=== PATIENT | male | born 1955 | race Caucasian/White ===

== ENCOUNTER 2020-07-03 09:48 | Outpatient (NON) | payer MEDICARE, OTHER, SELFPAY ==
[2020-07-03 17:33] LABS: Influenza Control Positive
== END 2020-07-03 09:49 ==
PROVIDERS: PCP Internal Medicine; Visit Provider Nurse Practitioner
DX: R68.89 Other general symptoms and signs (principal)
CPT/HCPCS: 87804

== ENCOUNTER 2020-11-04 13:57 | Outpatient (CLI) | payer MEDICARE, OTHER, SELFPAY ==
--- NOTE | ~2020-11-04 | US_ITS ---
EXAMINATION: US venous doppler LE DATE: 11/04/2020 14:33 INDICATION: Left lower limb swelling TECHNIQUE: Grayscale ultrasound images without and with compression and Doppler ultrasound images of the left lower extremity veins were obtained. COMPARISON: None. FINDINGS: Noncompressible occlusive appearing deep venous thrombosis in the distal left femoral vein, popliteal vein, proximal left posterior tibial veins and peroneal veins. The visualized portions of left commo n femoral vein, profunda (deep) femoral vein, possible to mid femoral vein, gastrocnemius vein and le sser saphenous vein and greater saphenous vein outflow are patent. IMPRESSION: 1. Above and [id number] left deep venous thrombosis extending from the distal left femoral vein through the popliteal vein into the peroneal and posterior tibial veins. Reviewed, dictated and finalized at location A. IMPRESSION: 1. Above and [id number] left deep venous thrombosis extending from the dis [place] left femoral vein through the popliteal vein into the peroneal and posterio r tibial veins.
--- NOTE | ~2020-11-04 | CT_ITS ---
EXAMINATION: CTA chest PE protocol DATE: 11/04/2020 16:28 INDICATION: Left lower extremity deep venous thrombosis extending as high as the distal left femoral vein TECHNIQUE: Computed tomography angiography (CTA) of the chest was performed with 100 mL Omnipaque-350 intravenous contrast timed to evaluate the pulmonary arteries. Coronal maximum intensity projection 3D-reconstructions were created by the technologist. Automated exposure control and iterative reconst ruction technique were employed. Exam dose: 807.11 mGy-cm total exam DLP. COMPARISON: 08/24/2018 2 view chest 11/04/2020 venous duplex examination of left leg FINDINGS: There is diagnostic contrast enhancement of the pulmonary arteries and extensive bilateral pulmonary embolism including bilateral saddle emboli, extensive clot involving particularly the lower lobes. No thoracic aortic aneurysm or dissection. No hilar or mediastinal mass lesion or lymphadenopathy. Cardiomegaly. No pericardial or pleural effusion. No pulmonary consolidation. No pulmonary mass lesion is evident. Normal morphology of the adrenal glands. 2 cm upper pole left renal cyst. Occasional probable hepatic cysts. No suspicious osteolytic or osteoblastic lesions are noted. IMPRESSION: Extensive bilateral pulmonary embolism including bilateral saddle emboli Reviewed, dictated and finalized at Location A. Reviewed, dictated and finalized at location B.
[2020-11-04 16:20] LABS: Estimated Glomerular Filt Rate > 60
== END 2020-11-04 13:58 | disposition home or self-care (01) ==
PROVIDERS: PCP Internal Medicine; Visit Provider Nurse Practitioner
DX: M79.89 Other specified soft tissue disorders (principal); R06.02 Shortness of breath; I82.402 Acute embolism and thrombosis of unspecified deep veins of left lower extremity
CPT/HCPCS: 71275; 93971; Q9967

== ENCOUNTER 2020-11-04 16:58 | Observation (INO) | payer MEDICARE, OTHER, SELFPAY ==
[2020-11-04] VITALS (8 sets, daily range): BP systolic 153–175; BP diastolic 86–96; PULSE 68–91; RESP 17–20; TEMP 36.2–36.3; O2SAT 95–100
--- NOTE | 2020-11-04 17:09 | ECG_ITS ---
Measurements Intervals [place] Rate: 77 P: 33 CA: 152 QRS: 12 QRSD: 94 T: 68 QT: 373 QTc: 424 Interpretive Statements SINUS RHYTHM NONSPECIFIC T-WAVE ABNORMALITY- HIGH LATERAL LEADS BASELINE WANDER- III, AVF, V4 BORDERLINE ECG Electronically Signed On 11-04-2020 17:59:22 CDT by Jose A Brian D.O.
[2020-11-04 17:21] LABS: Basophils Percent Auto 0.2 % (0.2-1.2); Eosinophils Absolute Auto 0.2 K/mm3 (0-0.3); Eosinophils Percent Auto 2.7 % (0-4.4); Hematocrit 45.4 % (42.0-52.0); Hemoglobin 15.1 g/dL (14.0-18.0); Immature Granulocyte Absolute 0.02 K/mm3 (0.00-0.031); Immature Granulocyte Percent A 0.3 % (0-0.5); Lymphocytes Absolute Auto 1.59 K/mm3 (0.9-3.2); Lymphocytes Percent Auto 24.1 % (18.3-44.2); Mean Corpuscular HGB Conc 33.3 g/dl (32-36); Mean Corpuscular Hemoglobin 29.8 pg (26-34); Mean Corpuscular Volume 89.5 fl (80-100); Monocytes Absolute Auto 0.5 K/mm3 (0.1-0.6); Monocytes Percent Auto 7.6 % (2.6-8.5); Neutrophils Absolute Auto 4.3 K/mm3 (1.3-6.7); Neutrophils Percent Auto 65.1 % (45.5-73.1); Platelet Count Result 190 k/mm3 (150-375); Red Blood Count 5.07 M/mm3 (4.6-6.20); Red Cell Distribution Width 13.4 % (11.5-14.5); White Blood Count 6.6 K/mm3 (4.5-10.0)
[2020-11-04 17:31] LABS: INR 0.9; Prothrombin Time 12.9 Seconds (11.1-14.7)
[2020-11-04 17:32] LABS: Partial Thromboplastin Time 27.5 SECONDS (22.3-36.8)
--- NOTE | 2020-11-04 17:36 | ED.SOB ---
HPI - SOB/Dyspnea General Chief Complaint: Shortness of Breath/Dyspnea Stated Complaint: bilateral PE and DVTs Time Seen by Provider: 11/04/20 17:07 Source: patient, family, RN notes reviewed and old records reviewed History of Present Illness HPI Narrative: 64-year-old male presents to emergency department, recently diagnosed for a DVT and PE. Patient states he has had left leg swelling and shortness of breath for the past week. No history of clots in the past. He had a ultrasound done today ordered by primary care physician which showed a DVT, and had a CT scan also today which showed a pulmonary embolism. Patient denies chest pain. No abdominal pain. No nausea or vomiting. Patient was started on Xarelto by his primary care physician. Related Data Home Medications Medication Instructions Recorded Confirmed losartan 100 mg PO DAILY 11/04/20 11/04/20 Allergies Allergy/AdvReac Type Severity Reaction Status Date / Time No Known Allergies Allergy Verified 11/04/20 13:10 Review of Systems Review of Systems: Narrative: CONSTITUTIONAL: Denies fever, chills, or sweats. EYES: Denies visual changes, redness, or discharge. ENT: Denies rhinorrhea, congestion, sore throat, or otalgia. CARDIOVASCULAR: Denies chest pain, palpitations, or edema. RESPIRATORY: Denies cough or dyspnea. GASTROINTESTINAL: Denies abdominal pain, nausea, vomiting, or diarrhea. GENITOURINARY: Denies dysuria or hematuria. SKIN: Denies rash or itching. MUSCULOSKELETAL: Denies back pain, joint pain, or myalgia. NEUROLOGIC: Denies headache, numbness, dizziness, or weakness. PSYCHIATRIC: Denies anxiety or depression. All systems reviewed & are unremarkable except as noted in HPI and below (ROS) [facility], [facility] Past Medical History Medical History (Updated 11/04/20 @ 20:05 by Madelaine Billings DO) GERD (gastroesophageal reflux disease) Hypertension Obstructive sleep apnea Polysomnogram 2016 with recommended CPAP settings of 7 cm H2O Surgical History Surgical History (Updated 11/04/20 @ 19:57 by Madelaine Billings DO) History of lumbar laminectomy History of ventral hernia repair Family History Family History (Updated 11/04/20 @ 19:59 by Madelaine Billings DO) Sibling Hypertension Mother Dementia Coronary artery disease Other Cerebrovascular accident Diabetes mellitus Social History Social History (Updated 11/04/20 @ 20:00 by LEONIE Enriquez Social History: Primary care physician: Dr. Devante Brown Code status: Full code Surrogate decision maker: Smoking status: Never smoker Alcohol intake: former Substance use: never Substance use type: does not use Gender identity (if verbalized by the patient): Male Spiritual care concerns: No Exam Narrative: Exam Narrative: GENERAL: Well-appearing, well-nourished, and in no acute distress. HEAD: Normocephalic, atraumatic. EYES: PERRLA and EOMI. ENT: Nares clear, no rhinorrhea or epistaxis. Mucous membranes moist. NECK: Supple. CHEST: Clear to auscultation. No respiratory distress. HEART: Regular rate and rhythm. No murmur heard. Normal peripheral pulses. ABDOMEN: Soft, nontender, nondistended, normal active bowel sounds. EXTREMITIES: Normal range of motion. 2+ pitting edema left lower extremity. SKIN: Warm, dry, no rash. NEURO: No focal deficits. Alert and oriented x3. PSYCH: Normal mood and affect. Course Course Emergency Course: 17:43 -discussed case with primary care physician for likely observation due to extensive pulmonary embolism and DVT. Vital Signs Vital signs: Vital Signs Temperature 36.2 C L 11/04/20 17:02 Pulse Rate 81 11/04/20 17:02 Respiratory Rate 19 11/04/20 17:02 Blood Pressure 175/93 H 11/04/20 17:02 Pulse Oximetry 100 11/04/20 17:02 Temperature 36.3 C L 11/04/20 20:20 Pulse Rate 74 11/04/20 22:00 Respiratory Rate 20 11/04/20 20:20 Blood Pressure 170/95 H 11/04/20 20:20 Pulse Oximetry 96 11/04/20 20
[2020-11-04 17:38] LABS: Alanine Aminotransferase 18 U/L (4-50); Albumin Level 4.8 g/dL (3.5-5.1); Alkaline Phosphatase 69 U/L (38-126); Anion Gap 10 mmol/L (8-16); Aspartate Amino Transferase 26 U/L (17-59); Bilirubin,Total 0.5 mg/dL (0.2-1.3); Blood Urea Nitrogen 20 mg/dL (9-20); Calcium 9.5 mg/dL (8.4-10.2); Carbon Dioxide 27 mmol/L (22-30); Chloride 105 mmol/L (98-107); Estimated CRCL calculation 72 ml/min; Estimated Glomerular Filt Rate > 60; Glucose 107 mg/dL (75-110); Potassium 4.1 mmol/L (3.4-5.0); Sodium 142 mmol/L (137-145)
[2020-11-04] MEDS: RIVAROXABAN 15 MG TABLET PO (18:07)
--- NOTE | 2020-11-04 19:50 | PM.IMHP ---
H&P: HPI History of Present Illness Date/Time: 11/04/20 19:50 Chief Complaint: DVT and PE noted on outpatient imaging Narrative: 64-year-old male with a past medical history of essential hypertension, obstructive sleep apnea a.m. recent COVID-19 infection around [facility] who presented to the ER from outpatient provider office due to DVT and PE noted on imaging. Patient had went to his primary care physician's office because he had been having increasing lower extremity swelling and pain for the last 2-3 weeks. He reported that the pain became so persistent that his insisted that he ago for evaluation. The patient reported that the swelling extends from his ankle up through his thigh and is accompanied by pain of 6/10 in intensity. The pain is tingling and stabbing at times. The pain is worse with ambulation and flexion of his ankle. It is improved when he keeps his leg elevated. He has noticed the onset of shortness of breath approximately 2 weeks ago. He has not had much of a cough. He denies any fevers or chills. He has not noticed any chest pain or palpitations. His shortness breath is worse with exertion. He denies any history of hematochezia, melena or hematuria. The patient's outpatient venous Doppler demonstrated extensive DVT in the left lower extremity and he was subsequently sent for his CT of the chest which demonstrated saddle pulmonary embolism without direct evidence of right heart strain. He does have a history of obstructive sleep apnea but has not used his CPAP in over a year because he cannot afford the supplies. He also has multiple dental caries which he goes to the dental school to have taking care of once a year because he cannot afford dental care. Review of Systems Review of Systems: Narrative: 12 systems were reviewed with pertinent positives and negatives per HPI. Except as documented in the HPI, all other systems were reviewed and are negative. [facility] Past Medical History Medical History (Updated 11/04/20 @ 20:05 by Madelaine Billings DO) GERD (gastroesophageal reflux disease) Hypertension Obstructive sleep apnea Polysomnogram 2015 with recommended CPAP settings of 7 cm H2O Surgical History Surgical History (Updated 11/04/20 @ 19:57 by Madelaine Billings DO) History of lumbar laminectomy History of ventral hernia repair Family History Family History (Updated 11/05/20 @ 00:58 by Madelaine Billings DO) Sibling Hypertension Cerebrovascular accident Diabetes mellitus Mother , at 89 years old. Dementia Coronary artery disease Social History Social History (Updated 11/05/20 @ 00:57 by Madelaine Billings DO) Social History: Primary care physician: Dr. Devante Brown Code status: Full code Surrogate decision maker: Smoking status: Never smoker Alcohol intake: former Substance use: never Substance use type: does not use Additional living arrangements comments: He lives in [facility] with his of 43 years. They have 2 sons and 1 daughter. Additional occupation/education comments: He served in the [employer] for 32 years. 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 Gender identity (if verbalized by the patient): Male Spiritual care concerns: No Meds Home Medications and Allergies Home Medications Medication Instructions Recorded Confirmed Type amlodipine 5 mg tablet 5 mg PO DAILY #90 tablet 11/04/20 11/04/20 Rx losartan 100 mg PO DAILY 11/04/20 11/04/20 History omeprazole 40 mg capsule,delayed 40 mg PO DAILY #90 cap 11/04/20 11/04/20 Rx release Allergies Allergy/AdvReac Type Severity Reaction Status Date / Time No Known Allergies Allergy Verified 11/04/20 13:10 Vital Signs Vital Signs - 24 hr 11/04/20 17:02 11/04/20 17:06 11/04/20 17:39 Temperature 97.2 F L Pulse Rate 81 86 89 Respiratory Rate 19 17 Blood Pressure 175/93 H 158/89 H P
--- NOTE | 2020-11-04 19:55 | ADMGEN ---
This patient, Kade Krishnamurthy Derik, was admitted to IMU Room 214-01 at 1920. Patient/family oriented to hospital policies and general routines including ID bracelet, bed and alarms, visiting hours, pain management, procedures, bathroom and other care routines, personal items, smoking policy, room service/diet, and visiting hours. Information on how to activate the Rapid Response Team has been discussed. Patient/Family are encouraged to report perceived risks to care and to ask questions if they do not understand what they are told or what they should do.
[2020-11-04 21:27] LABS: Basophils Percent Auto 0.3 % (0.2-1.2); Eosinophils Absolute Auto 0.2 K/mm3 (0-0.3); Hematocrit 40.2 % (42.0-52.0); Hemoglobin 13.6 g/dL (14.0-18.0); Immature Granulocyte Absolute 0.01 K/mm3 (0.00-0.031); Immature Granulocyte Percent A 0.1 % (0-0.5); Lymphocytes Absolute Auto 1.67 K/mm3 (0.9-3.2); Mean Corpuscular HGB Conc 33.8 g/dl (32-36); Mean Corpuscular Hemoglobin 30.1 pg (26-34); Mean Corpuscular Volume 88.9 fl (80-100); Mean Platelet Volume 8.7 fl (7.4-10.4); Monocytes Absolute Auto 0.5 K/mm3 (0.1-0.6); Monocytes Percent Auto 7.3 % (2.6-8.5); Neutrophils Absolute Auto 4.6 K/mm3 (1.3-6.7); Neutrophils Percent Auto 65.3 % (45.5-73.1); Platelet Count Result 164 k/mm3 (150-375); Red Blood Count 4.52 M/mm3 (4.6-6.20); Red Cell Distribution Width 13.3 % (11.5-14.5)
[2020-11-04 21:37] LABS: INR 1.5; Partial Thromboplastin Time 35.5 SECONDS (22.3-36.8); Prothrombin Time 18.9 Seconds (11.1-14.7)
[2020-11-05] VITALS (9 sets, daily range): BP systolic 122–153; BP diastolic 68–83; PULSE 66–83; RESP 12–20; TEMP 36.3–36.4; O2SAT 94–97
--- NOTE | 2020-11-05 | ECHO_ITS ---
Patient Info Name: Kade Krishnamurthy Age: 64 years : 1955 Gender: Male Ht: 76 in Wt: 247 lbs BSA: 2.47 m2 HR: 77 bpm BP: 147 / 77 mmHg Technical Quality: Good Exam Date: 11/05/2020 9:07 AM Exam Location: [facility] Patient Status: Outpatient Admit Date: 11/04/2020 Staff Ordering Physician: Madelaine Billings DO Cmm Programmer: Jorge Mancilla RDCS, RT Attending Provider: Gurpreet Wilson PA-C Referring Physician: Manuelito WHITE; Exam Type: CA echo dop color flow w con Study Info Indications I26.99 - Other pulmonary embolism without acute cor pulmonale Complete two-dimensional, color flow and Doppler transthoracic echocardiogram is performed with contrast to opacify the left ventricle and to improve the deliniation of the left ventricle endocardial borders. Contrast/Agitated Saline Contrast/Ag. Saline: Definity Amount: -1.00 ml Summary 1. Left ventricular chamber dimension is mildly enlarged. 2. Definity contrast administered improved wall motion interpretation. 3. Left ventricular systolic function is normal, estimated at 55-60%. 4. The left ventricular diastolic function is grade I diastolic dysfunction. 5. E/e' 6 is not elevated. 6. There is trace aortic valve regurgitation. 7. There is trace pulmonic regurgitation. Left Ventricle E/e' 6 is not elevated. Definity contrast administered improved wall motion interpretation. Left ventricular chamber dimension is mildly enlarged. Left ventricular systolic function is normal, estimated at 55-60%. The left ventricular diastolic function is grade I diastolic dysfunction. Right Ventricle Right ventricular systolic function is normal and with normal TAPSE 2.4 cm.. Right ventricular chamber dimension is normal. Left Atria Left atrial chamber dimension is normal. Right Atria Right atrial chamber dimension is normal. Aortic Valve The aortic valve is trileaflet. There is no aortic valve stenosis. There is trace aortic valve regurgitation. Pulmonic Valve There is trace pulmonic regurgitation. Mitral Valve There is no mitral valve stenosis. There is no mitral valve regurgitation. Tricuspid Valve There is no tricuspid valve regurgitation. Pericardium/Pleural There is no pericardial effusion. Inferior Vena Cava Normal inferior vena cava with >50% collapse upon inspiration consistent with normal right atrial pressure, 5 mmHg. Aorta The aortic root size at the sinus of Valsalva is normal. Tricuspid Valve Name Value Normal Estimated PAP/RSVP RA Pressure 5 mmHg <=5 Report Signatures
[2020-11-05 05:11] LABS: Basophils Percent Auto 0.3 % (0.2-1.2); Eosinophils Absolute Auto 0.2 K/mm3 (0-0.3); Eosinophils Percent Auto 3.4 % (0-4.4); Hemoglobin 13.6 g/dL (14.0-18.0); Immature Granulocyte Absolute 0.02 K/mm3 (0.00-0.031); Immature Granulocyte Percent A 0.3 % (0-0.5); Lymphocytes Percent Auto 21.6 % (18.3-44.2); Mean Corpuscular HGB Conc 33.2 g/dl (32-36); Mean Corpuscular Hemoglobin 29.8 pg (26-34); Mean Corpuscular Volume 89.7 fl (80-100); Mean Platelet Volume 8.9 fl (7.4-10.4); Monocytes Absolute Auto 0.5 K/mm3 (0.1-0.6); Monocytes Percent Auto 8.2 % (2.6-8.5); Neutrophils Absolute Auto 4.3 K/mm3 (1.3-6.7); Neutrophils Percent Auto 66.2 % (45.5-73.1); Platelet Count Result 172 k/mm3 (150-375); Red Blood Count 4.57 M/mm3 (4.6-6.20); Red Cell Distribution Width 13.3 % (11.5-14.5); White Blood Count 6.5 K/mm3 (4.5-10.0)
[2020-11-05 05:37] LABS: Anion Gap 6 mmol/L (8-16); Blood Urea Nitrogen 18 mg/dL (9-20); Calcium 8.8 mg/dL (8.4-10.2); Carbon Dioxide 27 mmol/L (22-30); Chloride 106 mmol/L (98-107); Estimated CRCL calculation 79 ml/min; Estimated Glomerular Filt Rate > 60; Glucose 91 mg/dL (75-110); Potassium 3.9 mmol/L (3.4-5.0); Sodium 139 mmol/L (137-145)
[2020-11-05] MEDS: LOSARTAN POTASSIUM 100 MG TABLET PO (08:01)
[2020-11-05] MEDS: PANTOPRAZOLE 40 MG TABLET PO (08:02)
[2020-11-05] MEDS: amLODIPine BESYLATE 5 MG TABLET PO (08:02)
[2020-11-05] MEDS: RIVAROXABAN 15 MG TABLET PO (08:08)
[2020-11-05] MEDS: PERFLUTREN LIPID MICROSPHERES 1.5 ML VIAL DILUTED TO 10 ML TOTAL VOLUME IV PUSH (10:08)
--- NOTE | 2020-11-05 12:13 | PM.IMPN ---
Progress Note: A&P Assessment and Plan (1) Acute saddle pulmonary embolus: Qualifiers: Acute cor pulmonale presence: without acute cor pulmonale Qualified Code(s): I26.92 - Saddle embolus of pulmonary artery without acute cor pulmonale Code(s): I26.92 - Saddle embolus of pulmonary artery without acute cor pulmonale Status: Acute (2) DVT (deep venous thrombosis): Qualifiers: DVT location: lower extremity Affected thrombotic vein of extremity: femoral Chronicity: acute Laterality: left Qualified Code(s): I82.412 - Acute embolism and thrombosis of left femoral vein Code(s): I82.409 - Acute embolism and thrombosis of unspecified deep veins of unspecified lower extremity Status: Acute Additional Plan The patient has bilateral saddle pulmonary emboli with extensive left lower extremity DVT. Patient was started on Xarelto with a 1 time dose of 20 mg in the ER. Will initiate the patient on Xarelto 15 mg p.o. b.i.d. for 21 days to transition to 20 mg a day after that time. Will order echocardiogram for a.m. to evaluate for possible right heart strain but no evidence right heart strain on CTA. Patient's respiratory status remains stable. The patient is being monitored overnight in IMU. Patient has been admitted as observation status. Subjective Date/time seen: 11/05/20 12:13 Interval history: Patient is a 64-year-old male with a past medical history of essential hypertension, obstructive sleep apnea, and recent COVID infection in 06/2020 who is seen in follow up for extensive LLE DVT and extensive PEs. Patient states he feels much better today. Breathing is easier. His LLE swelling has improved. Has no cp/palpitations. Minimal SOB. in room at time of visit thinks he looks better today; more energetic and less lethargic. Has a bit of a headache. No other complaints at the moment. Eager to be discharged. Denies f/c/s, dizziness, lightheadedness, n/v/d/c, abd pain, changes in BMs, dysuria, hematuria, cloudy urine Review of Systems Review of Systems: All systems reviewed & are unremarkable except as noted in HPI and below Exam Narrative: Exam Narrative: General: Patient resting in semi-recumbent position in bed in no acute distress. HEENT: Normocephalic, EOMI, oral mucosa moist. Cardiovascular: Rate and rhythm are regular. No notable murmur, rub, or gallop. Tele shows apparent NSR rhythm with occasional PVCs/PACs; asymptomatic Respiratory: Lungs clear to auscultation all givens. Non-labored breathing. Abdomen: Soft, non-tender, non-distended, bowel sounds present. Extremities: Peripheral pulses intact. LLE edema. NTTP b/l calves. NVI b/l LE. Strong pedal pulses b/l. cap refill <2 sec b/l LE. Neuro: No focal neurological deficits. Speech is clear. Objective Data Vital Signs Vital Signs: Last Vital Signs Temp 97.3 F L 11/05/20 07:35 Pulse 75 11/05/20 10:00 Resp 20 11/05/20 07:35 BP 153/83 H 11/05/20 07:35 Pulse Ox 95 11/05/20 10:08 Intake/Output Intake/Output: Intake & Output 11/02/20 11/03/20 11/04/20 11/05/20 23:59 23:59 23:59 23:59 Intake Total 540 Output Total 760 480 Balance -760 60 Meds/Results Medications: Active Medications Generic Name Dose Route Start Last Admin Trade Name Freq PRN Reason Stop Dose Admin Amlodipine Besylate 5 mg 11/05/20 09:00 11/05/20 08:02 Amlodipine Besylate 5 Mg Tablet PO 5 mg DAILY TAB Administration Losartan Potassium 100 mg 11/05/20 09:00 11/05/20 08:01 Losartan Potassium 100 Mg Tablet PO 100 mg DAILY TAB Administration Pantoprazole Sodium 40 mg 11/05/20 09:00 11/05/20 08:02 Pantoprazole 40 Mg Tablet PO 40 mg Q12HR TAB Administration Rivaroxaban 15 mg 11/05/20 08:00 11/05/20 08:08 Rivaroxaban 15 Mg Tablet PO 11/25/20 08:01 15 mg BIDWM TAB Administration Rivaroxaban 20 mg 11/26/20 09:00 Rivaroxaban 20 Mg Tablet PO DAILY TAB Labs
--- NOTE | 2020-11-05 12:34 | PM.DS ---
DS: Admitting Diagnosis Admitting Diagnosis Admitting Diagnosis: DVT LLE, saddle PEs DS: Discharge Diagnosis Discharge Diagnosis (1) Acute saddle pulmonary embolus: Qualifiers: Acute cor pulmonale presence: without acute cor pulmonale Qualified Code(s): I26.92 - Saddle embolus of pulmonary artery without acute cor pulmonale Code(s): I26.92 - Saddle embolus of pulmonary artery without acute cor pulmonale Status: Acute Assessment and Plan: The patient has bilateral saddle pulmonary emboli with extensive left lower extremity DVT. Started on Xarelto in ED evening of 11/04. Symptoms have signinficanly improved overnight. Less SOB, no CP, less LLE swelling, has full sensation in LLE. Exam shows strong pedal pulses b/l. CTA chest showed extensive PEs with b/l saddle PEs. Echo this afternoon shows no evidence of right heart strain. Possibly secondary to recent COVID infection, although he may need op work up for clotting disorder after treatment of VTE. Plan will be to continue Xarelto at 15 mg BID through morning of 11/25, then transition to Xarelto 20 mg daily morning of 11/26 Will need prompt follow up with PCP Discussed warning signs to return to hospital including severe chest pain/palpitations, worsened LE swelling, decreased sensation in LLE, or signs of bleeding (ie bloody stools, melena, uncontrolled epistaxis). Patient and verbalized understanding D/c today (2) DVT (deep venous thrombosis): Qualifiers: Affected thrombotic vein of extremity: femoral Chronicity: acute DVT location: lower extremity Laterality: left Qualified Code(s): I82.412 - Acute embolism and thrombosis of left femoral vein Code(s): I82.409 - Acute embolism and thrombosis of unspecified deep veins of unspecified lower extremity Status: Acute Assessment and Plan: Please see above a/p DS: Summary Hospital Course Reason for hospitalization: VTE; extensive LLE DVT, Extensive PE and b/l saddle PEs Hospital Course: Date of arrival: 11/04/20 Date of discharge: 11/05/20 Patient is a 64-year-old male with a past medical history of essential hypertension, obstructive sleep apnea, and recent COVID-19 infection in 06/2020 who presented to the ER on 11/04 from outpatient provider office due to DVT and PE noted on imaging. Patient was started on PO Xarelto 15 mg BID in the ED. Patient admitted to the hospitalist service under this setting for further management/treatment, particularly for an Echo to assess if there was presence of right heart strain. Please see H&P for further details. After admission, patient remained hemodynamically stable. Clinically he had improved after initiating Xarelto 15 mg BID. He obtained an Echo on 11/05 which did not reveal any evidence of right heart strain. Plan was for him to continue on Xarelto 15 mg BID for 3 weeks total, then transition to 20 mg daily thereafter. He was to follow up with his PCP. He was encouraged to use his CPAP. Patient and agreeable and comfortable with plan for discharge. Patient hemodynamically stable and in improved condition for discharge on 11/05 Status at Discharge Overall status at discharge: patient is progressing back to baseline Time Spent with Patient Time attestation: Total time spent providing and/or coordinating discharge services: Time spent: Greater than 30 minutes Exam Narrative: Exam Narrative: General: Patient resting in semi-recumbent position in bed in no acute distress. HEENT: Normocephalic, EOMI, oral mucosa moist. Cardiovascular: Rate and rhythm are regular. No notable murmur, rub, or gallop. Tele shows apparent NSR rhythm with occasional PVCs/PACs; asymptomatic Respiratory: Lungs clear to auscultation all givens. Non-labored breathing. Abdomen: Soft, non-tender, non-distended, bowel sounds present. Extremities: Pe
[2020-11-09 21:06] LABS: Lupus dRVVT 1:1 Mix Interpreta Not Indicated; Lupus dRVVT Confirmation Negative (Negative); Lupus dRVVT Screen 50 sec (<=45); PTT-LA Screen 38 sec (<=40)
== END 2020-11-05 13:13 | disposition home or self-care (01) ==
LOC: ANHED 17:53 → ANHIMU 18:47
PROVIDERS: Emergency Medicine; Internal Medicine; Admitting Provider Family Medicine; Emergency Provider Emergency Medicine; PCP Internal Medicine; Visit Provider Family Medicine
DX: I26.92 Saddle embolus of pulmonary artery without acute cor pulmonale (principal); I82.412 Acute embolism and thrombosis of left femoral vein; I10 Essential (primary) hypertension; G47.33 Obstructive sleep apnea (adult) (pediatric); Z86.16 Personal history of COVID-19; R06.02 Shortness of breath
CPT/HCPCS: 36415; 71275; 80048; 80053; 81240; 81241; 85025; 85597; 85610; 85613; 85730; 93005; 93306; 93971; 96374; 99285; A9270; C8929; G0378; Q9957; Q9967

== ENCOUNTER → 2021-05-31 11:47 | Outpatient (CLI) | payer MEDICARE, OTHER, SELFPAY ==
--- NOTE | ~2021-05-31 | XR_ITS ---
EXAMINATION: XR elbow LT 2V INDICATION: Olecranon bursitis, left elbow pain TECHNIQUE: Two views of the left elbow are obtained. COMPARISON: 10/10/2012 FINDINGS: There is prominent dorsal soft tissue swelling overlying the olecranon. A posterior entheso phyte of the olecranon is again seen. There is no fracture. Bone alignment is normal. 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 IMPRESSION: 1. Radiographic findings consistent with olecranon bursitis. Reviewed, dictated and finalized at location A.
== END ==
PROVIDERS: Visit Provider Orthopaedic Surgery
DX: M70.22 Olecranon bursitis, left elbow (principal)
CPT/HCPCS: 73070

== ENCOUNTER 2021-10-20 15:23 | Outpatient (CLI) | payer MEDICARE, OTHER, SELFPAY ==
--- NOTE | ~2021-10-20 | US_ITS ---
EXAMINATION: US venous doppler [facility] DATE: 10/20/2021 15:52 INDICATION: Shortness of breath, history of deep venous thrombosis TECHNIQUE: Newberry scale images without and with compression and Doppler images of the left lower extrem ity veins were obtained. COMPARISON: 11/04/2020 FINDINGS: The left common femoral vein, profunda femoral vein, femoral vein, popliteal vein, peroneal trunk, posterior tibial veins, and greater saphenous vein are patent. IMPRESSION: 1. Patent left lower extremity veins. No evidence of deep venous thrombosis. Reviewed, dictated and finalized at location B. 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
== END 2021-10-20 15:24 | disposition home or self-care (01) ==
LOC: ANHIMG 15:29
PROVIDERS: PCP Internal Medicine; Visit Provider Nurse Practitioner
DX: R06.02 Shortness of breath (principal); I82.509 Chronic embolism and thrombosis of unspecified deep veins of unspecified lower extremity
CPT/HCPCS: 93971

== ENCOUNTER 2022-05-04 09:05 | Outpatient (CLI) | payer MEDICARE, OTHER, SELFPAY ==
--- NOTE | ~2022-05-04 | US_ITS ---
US scrotum doppler INDICATION: Testicular pain TECHNIQUE: Testicular sonogram utilizing grayscale and color Doppler FINDINGS: The testes are normal in size and appearance. No focal lesions are seen. The right testes measures 4.4 x 2.1 x 2.5 cm centimeters, and the left testis measures 3.9 x 1.9 x 2.9 cm cm. There is normal vascular flow to both testes. There are bilateral epididymal cysts. There is no varicocele or hydrocele. IMPRESSION: 1. Bilateral epididymal cysts, largest on the left measuring 5 mm. Reviewed, dictated and finalized at location A.
== END 2022-05-04 09:06 | disposition home or self-care (01) ==
PROVIDERS: PCP Internal Medicine; Visit Provider Internal Medicine
DX: N50.819 Testicular pain, unspecified (principal); N50.3 Cyst of epididymis
CPT/HCPCS: 76870; 93976